=== PATIENT | female | born 1990 | race Caucasian/White ===

== ENCOUNTER → 2017-10-18 | Outpatient (CLI) | payer BC, OTHER ==
[2015-03-07 11:14] VITALS: BMI 38.1
[~2017-10-18] MED LIST: ARMTHY90PT PO; CALC-521 PO; CETI10CA8 PO; FAMO40TA8 PO; HYDR-4225 PO; IBUP800T37 PO; MONT10TA PO; OXYC-865 PO; TRAZ-156 PO
== END ==
LOC: LAB 10:02
PROVIDERS: ATTEND Obstetrics & Gynecology
DX: E03.9 Hypothyroidism, unspecified (principal); Z33.1 Pregnant state, incidental
CPT/HCPCS: 36415; 84439; 84443; 84481

== ENCOUNTER → 2017-10-28 | Outpatient (CLI) | payer BC, OTHER ==
[2015-03-07 11:14] VITALS: BMI 38.1
== END ==
LOC: LAB 09:01
PROVIDERS: ATTEND Obstetrics & Gynecology
DX: O20.9 Hemorrhage in early pregnancy, unspecified (principal)
CPT/HCPCS: 36415; 84702

== ENCOUNTER → 2018-01-06 | Outpatient (CLI) | payer BC, OTHER ==
[2015-03-07 11:14] VITALS: BMI 38.1
[~2018-01-06] MED LIST changes: +PREN-127 PO; +SCOP1PAT16 TP
[2018-01-06 10:06] LABS: PLATELET COUNT, AUTOMATED 279 K/uL (150-450)
== END ==
LOC: LAB 09:21
PROVIDERS: ATTEND Obstetrics & Gynecology
DX: Z34.91 Encounter for supervision of normal pregnancy, unspecified, first trimester (principal); E06.3 Autoimmune thyroiditis; R82.79 Other abnormal findings on microbiological examination of urine
CPT/HCPCS: 36415; 81001; 84443; 85025; 86592; 86762; 86787; 86850; 86900; 86901; 87088; 87340

== ENCOUNTER → 2018-01-24 | Outpatient (CLI) | payer BC, OTHER ==
[2015-03-07 11:14] VITALS: BMI 38.1
== END ==
LOC: LAB 10:06
PROVIDERS: ATTEND Obstetrics & Gynecology
DX: Z34.81 Encounter for supervision of other normal pregnancy, first trimester (principal)
CPT/HCPCS: 87491; 87591

== ENCOUNTER → 2018-02-10 | Outpatient (CLI) | payer BC, OTHER ==
[2015-03-07 11:14] VITALS: BMI 38.1
[~2018-02-10] MED LIST changes: +FLUT16SP19 NS; -TRAZ-156 PO; +TRAZ50TA34 PO
== END ==
LOC: LAB 14:25
PROVIDERS: ATTEND Obstetrics & Gynecology
DX: O99.280 Endocrine, nutritional and metabolic diseases complicating pregnancy, unspecified trimester (principal)
CPT/HCPCS: 36415; 84443

== ENCOUNTER → 2018-04-10 | Outpatient (CLI) | payer BC, OTHER ==
[2015-03-07 11:14] VITALS: BMI 38.1
[~2018-04-10] MED LIST changes: +BUTA1TAB14 PO
== END ==
LOC: LAB 09:06
PROVIDERS: ATTEND Obstetrics & Gynecology
DX: O99.280 Endocrine, nutritional and metabolic diseases complicating pregnancy, unspecified trimester (principal)
CPT/HCPCS: 36415; 84443

== ENCOUNTER → 2018-04-21 | Outpatient (CLI) | payer BC, OTHER ==
[2015-03-07 11:14] VITALS: BMI 38.1
--- NOTE | 2018-04-21 11:19 | RADIOLOGY IMAGING REPORT ---
[place] [facility] [place] Terri Plata : 1990 MR: [id number] V: [id number] EXAM DATE: ORDERING PHYSICIAN: EMORY NAVAS TECHNOLOGIST: Location: [facility] Patient: Terri Plata : 1990 Visit/Account:[id number] Date of Sevice: 04/21/2018 [facility] OB ANATOMICAL SURVEY HISTORY: Routine ultrasound survey. ADDITIONAL HISTORY: None. COMPARISON: None. TECHNIQUE: Transabdominal imaging was performed for assessment of the fetus and maternal pelvic s tructures. Transvaginal imaging was performed. FINDINGS: Intrauterine gestations: One. presentation: Variable. heart rate: 130 bpm. Amniotic fluid volume: Normal; LULU 16.13 cm; MVP 4.89 cm. Placenta: Anterior and slightly low-lying, with the lower edge measuring 1.3 cm from the internal cer vical os.. Uterus: Gravid, otherwise unremarkable. Maternal adnexa/ovaries: Grossly unremarkable, ovaries not visualized.. Cervix: Long and closed. Transvaginal imaging demonstrated the cervical length measuring 4.11 cm, lo ng and closed.. Gestational Parameters: BPD: 4.63 cm; 20 weeks/ 0 days HC: 17.64 cm; 20 weeks/ 1 days AC: 15.23 cm; 20 weeks/ 4 days FL: 3.56 cm; 21 weeks/ 2 days Average ultrasound age (AUA): 20 weeks/ 4 days Estimated age based on LMP: 20 weeks/ 1 days Anatomic Survey: Intracranial structures, 4-chamber heart, stomach, kidneys, urinary bladder, spine, 3-vessel cord and cord insertion are unremarkable. Two upper and two lower extremities visualized. Upper lip and horacio te are intact. IMPRESSION: 1. Normal survey. 2. Slightly low-lying anterior placenta, with lower edge measuring 1.3 cm from the internal cervical os. 3. Ultrasound age 20 weeks/4 days consistent with gestational age based on LMP. Gestational age by LMP is 20 weeks/ 1 days with estimated date of delivery 09/07/2018. 4. Recommend follow-up ultrasound in the third trimester to confirm the position of the placenta wit h respect to the internal cervical os. . Report Dictated By: Kenrick Martinez at 04/21/2018 11:08 AM Report E-Signed By: Kenrick Martinez at 04/21/2018 11:15 AM WSN:[email or web address]
== END ==
LOC: RAD 09:20
PROVIDERS: ATTEND Obstetrics & Gynecology
DX: Z02.9 Encounter for administrative examinations, unspecified (principal)

== ENCOUNTER → 2018-06-05 | Outpatient (CLI) | payer BC, OTHER ==
[2015-03-07 11:14] VITALS: BMI 38.1
[~2018-06-05] MED LIST changes: +ALBU8.5H IH; +DIPH0.5D12 IM; +FLU60VIA41 IM
[2018-06-05 16:08] LABS: PLATELET COUNT, AUTOMATED 270 K/uL (150-450)
== END ==
LOC: LAB 08:07
PROVIDERS: ATTEND Obstetrics & Gynecology
DX: Z34.92 Encounter for supervision of normal pregnancy, unspecified, second trimester (principal)
CPT/HCPCS: 36415; 82950; 84443; 85025

== ENCOUNTER → 2018-07-24 | Outpatient (CLI) | payer BC, OTHER ==
[2015-03-07 11:14] VITALS: BMI 38.1
--- NOTE | 2018-07-24 14:43 | RADIOLOGY IMAGING REPORT ---
FACILITY: [facility] PATIENT NAME: Terri Plata : 1990 MR: [id number] V: [id number] EXAM DATE: ORDERING PHYSICIAN: EMORY NAVAS TECHNOLOGIST: [place] [facility] [place]: Terri Plata : 1990 Visit/Account:[id number] Date of Sevice: 07/24/2018 Exam type: [facility] OB LIMITED History: LULU, heart rate Comparison: April 21, 2018. Findings: Limited OB evaluation was performed for LULU and heart rate. Her graft A single fetus in breec h presentation was demonstrated. The heart rate was 138 bpm. LULU was 20.54 cm, largest amniotic fluid pocket was 7.48 cm The gestational age by last menstrual. Was 33 weeks and four days IMPRESSION: 1. Limited OB evaluation for heart rate and LULU demonstrated heart rate of 138 bpm. LULU was 20.54 cm with the largest pocket measuring 7.48 cm Report Dictated By: Vilma Addison MD at 07/24/2018 2:36 PM Report E-Signed By: Vilma Addison MD at 07/24/2018 2:39 PM WSN:[email or web address]
== END ==
LOC: RAD 09:01
PROVIDERS: ATTEND Obstetrics & Gynecology
DX: O26.843 Uterine size-date discrepancy, third trimester (principal); O09.93 Supervision of high risk pregnancy, unspecified, third trimester

== ENCOUNTER → 2018-07-26 | Outpatient (CLI) | payer BC, OTHER ==
[~2018-07-26] VITALS: Ht 160 cm; Wt 95.3 kg
[~2018-07-26] MED LIST changes: +AMPICILLIN 2 GM VIAL 2 GM in NS(*) 0.9% 100 ML ADDVANT BAG 100 ML IVPB ONE; +LR(*) 1000 ML BAG 1,000 ML ONE; +MAGNESIUM SUL* 4 GM/100 ML BAG 100 ML IVPB ONE; +MAGNESIUM SULF 20 GM/500 ML IV 500 ML IV SCH; +NORMOSOL R SOLN(*) 1000 ML BAG 1,000 ML IV ONE
[2018-07-26 21:20] VITALS: BP_SYST 118; BP_DIAS 65; BP_DIAS 68; Ht 160 cm; Wt 95.3 kg
--- NOTE | 2018-07-26 22:39 | RADIOLOGY IMAGING REPORT ---
FACILITY: [facility] PATIENT NAME: Terri Plata : 1990 MR: [id number] V: [id number] EXAM DATE: ORDERING PHYSICIAN: MONY QUINONEZ TECHNOLOGIST: Location: [facility] Patient: Terri Plata : 1990 Visit/Account:[id number] Date of Sevice: 07/26/2018 OB LIMITED HISTORY: Heavy bleeding. No heart tones. 33 week 6 day gestation. COMPARISON STUDIES: 07/24/2018. FINDINGS: Examination was performed in the left lateral decubitus position Intrauterine gestations: One. presentation: Cephalic. heart rate: Regular at 139 bpm. Amniotic fluid index: 9.1 cm. Largest amniotic fluid pocket 4.7 cm. Placenta: Anterior without previa. Placental cord insertion is normal. Uterus: Gravid, otherwise normal. Maternal adnexa: Unremarkable. Cervix: Not visualized due to shadowing from the head. IMPRESSION: 1. Single live intrauterine gestation in cephalic presentation. 2. Regular cardiac activity at 139 bpm. 3. Amniotic fluid index is 9.1, previously 20.5. The deepest pocket is 4.7 cm. 4. Placenta is anterior without previa. These findings were discussed by phone with MONY QUINONEZ on 07/26/2018 10:35 PM. Report Dictated By: Fariha Jacob at 07/26/2018 10:23 PM Report E-Signed By: Fariha Jacob at 07/26/2018 10:35 PM WSN:[id number]
[2018-07-26 23:07] LABS: PLATELET COUNT, AUTOMATED 263 K/uL (150-450)
[2018-07-26 23:33] LABS: INR 0.97
--- NOTE | 2018-07-26 23:41 | History & Physical ---
History of Present Illness Age of Patient: 28 : 3 Para or TPAL: 1 EDC per LMP: Sep 07, 2018 Estimated Gestational Age: 33.6 Chief Complaint Vaginal bleeding. History of Present Illness Pt is a 28 y/o @ 33-6/7 weeks gestation by Lmp consistent with an early ultrasound with a final GRAY of 09/07/18. Pt presents to L&D with a chief com plaint of vaginal bleeding. Pt reports a large gush of blood/fluid around 2049 tonight. Reports that it was a lot and appeared to have lots of blood. Pt reports that she has had multiple episodes of this since 2049. Pt reports that while on her way to [place] to visit family she had similar episodes that weren't as bad. She did receive Betamethasone 07/13/and 07/14. Pt did see MFM at [facility]. Pt reports that she has been having irregular contractions since having the large gush of fluid. Painful contractions every 10 minutes but does feel tightening more frequent then that. History Patient's Blood Type: O Positive Rubella Status: Immune Group B Strep Screen: Positive Obstetrical History: Episode of Vaginal Bleeding 07/13 and 07/14 in [place], [place]. Pt received Betamethasone 12 mg on 07/13 and 07/14. History of Delivery. Desires repeat. Past Medical History: Hashimotos Thyroiditis TSH of 1.33 on 06/05/18. Chronic idiopathic Urticaria GBS positive. Allergies: Coded Allergies: NSAIDS (Non-Steroidal Anti-Inflamma (Verified Allergy, Severe, hives, angioedema, 02/10/18) levonorgestrel (Verified Allergy, Unknown, 02/10/18) metoclopramide (Verified Allergy, Unknown, 02/10/18) Social History: No T/E/D. . Family History: FH: colon cancer MGF FH: diabetes mellitus PGM Med Rec Home Meds Active Scripts Albuterol Sulfate 90 Mcg/Act (PROAIR HFA 90 MCG/ACT) 8.5 Gm Hfa.aer.ad, 2 PUFF IH Q6H PRN for wheezing, #1 INHALER 3 Refills Prov:EMORY NAVAS MD 05/08/18 Fluticasone Prop 50 Mcg Ns (FLONASE 50 MCG NS) 16 Gm [place].susp, 2 SPRAYS NS QDAY, #1 BOT 6 Refills Prov:EMORY NAVAS MD 05/08/18 Butalb/Acetaminophen/Caff 50-325-40 Mg (FIORICET 50-325-40) 1 Each Tablet, 1-2 TAB PO Q4H PRN for headache, #30 TAB 2 Refills Prov:EMORY NAVAS MD 04/10/18 Reported Medications Vits W-Ca,Fe,Fa(<1MG) ( VITAMINS) 1 Each Tablet, 1 EACH PO DAILY, TAB 01/06/18 Calcium Carbonate (TUMS) 300 Mg Tab.chew, 600 MG PO, TAB.CHEW 03/04/15 Thyroid (ARMOUR THYROID) 90 Mg Tab, 120 MG PO, TAB 10/15/13 Review of Systems All Systems Reviewed/Normal: Yes, Except as Noted Constitutional: No Fever, No Weight Loss, No Weight Gain, No Chills, No Night Sweats, No Other Neurological: No Syncope, No Confusion, No Weakness, No Dizziness, No Slurred Speech, No Other Eyes: No Vision Change, No Loss of Vision, No Photophobia, No Other ENT: No Hearing Loss, No Sinus Congestion, No Sore Throat, No Ear Ache, No Tinnitus, No Other Cardiovascular: No Chest Pain, No Palpitations, No Orthostatic Hypotension, No Other Respiratory: No Shortness of Breath, No Cough, No Wheezing, No Other Gastrointestinal: No Nausea, No Vomiting, No Diarrhea, No Dysphagia, No Constipation, No Early Satiety, No Hematemesis, No Hematochezia, No Melena, No Abdominal Pain, No Other Genitourinary: No Dysuria, No Hematuria, No Urinary Incontinence, No Other Musculoskeletal: No Pain, No Sprain, No Strain, No Impaired Mobility, No Other Psychiatric: No Depression, No Anxiety, No Other Exam General Exam General Apperance: Alert/Awake/No Acute Distress Neuro: No Gross deficits Eyes: Normal Extraocular Movement & Vison ENT: Normal Cardiovascular: Regular Rate and Rhythm Respiratory: No Respiratory Distress Abdomen: Soft, Non-Tender, Non-Distended, Gravid - Non-Tender : Normal Musculoskeletal: No Weakness/Pain Extremities: No Cyanosis,Clubbing or Edema Integumentary: Skin Intact without Lesions or Rash Psychological: Alert & Oriented X3 Vaginal Discharge/Fluid?: Bloody Fluid Cervical Dialation: 1 Cervical Effacement (%): 70 Cervical Consistency: Soft Cervical Position: Anterior Station: -2 Medical Decision Making Imaging Ultrasound/Imaging PATIENT NAME: Terri Plata : 1990 MR: [id number] V: [id number] EXAM DATE: ORDERING PHYSICIAN: MONY QUINONEZ TECHNOLOGIST: Location: [facility] Patient: Terri Plata : 1990 Visit/Account:[id number] Date of Sevice: 07/26/2018 OB LIMITED HISTORY: Heavy bleeding. No heart tones. 33 week 6 day gestation. COMPARISON STUDIES: 07/24/2018. FINDINGS: Examination was performed in the left lateral decubitus position Intrauterine gestations: One. presentation: Cephalic. heart rate: Regular at 139 bpm. Amniotic fluid index: 9.1 cm. Largest amniotic fluid pocket 4.7 cm. Placenta: Anterior without previa. Placental cord insertion is normal. Uterus: Gravid, otherwise normal. Maternal adnexa: Unremarkable. Cervix: Not visualized due to shadowing from the head. IMPRESSION: 1. Single live intrauterine gestation in cephalic presentation. 2. Regular cardiac activity at 139 bpm. 3. Amniotic fluid index is 9.1, previously 20.5. The deepest pocket is 4.7 cm. 4. Placenta is anterior without previa. These findings were discussed by phone with MONY QUINONEZ on 07/26/2018 10:35 PM. Report Dictated By: Fariha Jacob at 07/26/2018 10:23 PM Pre-Admit Course Medical Record Review: Yes VTE Prophylasis: Adult Deep Vein Thrombosis/Pulmonary: No Assessment and Plan SITE MANAGER Assessment: Stable SITE MANAGER Plan: Routine Labor Care Problems: (1) History of delivery affecting (2) 33 weeks gestation of (3) premature rupture of membranes Status: Acute Assessment & Plan: Pt is 33 wga. Did discuss pt care with Dr. Gould at [facility] who has agreed to accept the patient. Pt continues to leak fluid. Bleeding is minimal at this point. Pt is GBS. Will start on Ampicillin 2 gms. Will also start patient on Magnesium sulfate to tocolysis. Pt H/H stable at 11.0/32.3. Pt received betamethasone on 07/13 and 07/14 in [place]. Will plan for transfer to [facility]. Continue to monitor pt's bleeding. If it worsens and no longer stable will need to deliver and then transfer the . MONY QUINONEZ DO Jul 26, 2018 23:41
== END ==
LOC: L&D 07-26 21:06 → UNDOADMIN 21:06 → OB 21:06 → L&D 21:06 → UNDODISIN 07-27 02:05 → EDSTATUS 07-28 07:15
PROVIDERS: ATTEND Student in an Organized Health Care Education/Training Program
DX: O36.8130 Decreased fetal movements, third trimester, not applicable or unspecified (principal); Z3A.33 33 weeks gestation of pregnancy
CPT/HCPCS: 76815; 84112; 85025; 85049; 85379; 85384; 85610; 85730; J0290; J3475; J7050; 59025; 82040; 82247; 82310; 82374; 82435; 82565; 82947; 84075; 84132; 84155; 84295; 84450; 84460; 84520

== ENCOUNTER → 2018-07-27 | Outpatient (REF) ==
[2018-07-26 21:20] VITALS: BMI 37.2
[~2018-07-27] MED LIST changes: -AMPICILLIN 2 GM VIAL 2 GM in NS(*) 0.9% 100 ML ADDVANT BAG 100 ML IVPB ONE; -LR(*) 1000 ML BAG 1,000 ML ONE; -MAGNESIUM SUL* 4 GM/100 ML BAG 100 ML IVPB ONE; -MAGNESIUM SULF 20 GM/500 ML IV 500 ML IV SCH; -NORMOSOL R SOLN(*) 1000 ML BAG 1,000 ML IV ONE
== END ==
LOC: AMB 01:08
PROVIDERS: ATTEND Nurse Practitioner
DX: Z02.9 Encounter for administrative examinations, unspecified (principal)

== ENCOUNTER → 2018-09-19 | Outpatient (CLI) | payer BC, OTHER ==
[2018-07-26 21:20] VITALS: BMI 37.2
[~2018-09-19] MED LIST changes: +METH0.2T6 PO
--- NOTE | 2018-09-19 19:49 | RADIOLOGY IMAGING REPORT ---
FACILITY: [facility] PATIENT NAME: Terri Plata : 1990 MR: [id number] V: [id number] EXAM DATE: ORDERING PHYSICIAN: EMORY NAVAS TECHNOLOGIST: Location: [facility] [place] Patient: Terri Plata : 1990 Visit/Account:[id number] Date of Sevice: 09/19/2018 Pelvic ultrasound INDICATION: bleeding COMPARISON: OB ultrasound from July 26, 2018 FINDINGS: Uterus measures 8.3 x 4.4 x 5.8. Mild myometrial heterogeneity. Hypoechoic region correlating to the operation. Mild hypervascularity without focal lesion. The endometrium measures 5 mm and is within normal limits. Trace amount of simple appearing free fluid. Urinary bladder is empty. Pelvic vessels appear unremarkable on this examination. Bilateral ovaries are unremarkable with multiple small peripheral follicles and normal internal vascu larity. IMPRESSION: 1. Expected appearance of the uterus status post section. The uterus is mildly hy pervascular without focal abnormality. 2. The endometrium measures 5 mm and appears normal. 3. Trace amount of simple appearing free fluid Report Dictated By: Naresh Aguiar MD at 09/19/2018 7:39 PM Report E-Signed By: Naresh Aguiar MD at 09/19/2018 7:45 PM WSN:[id number]
== END ==
LOC: US 15:41
PROVIDERS: ATTEND Obstetrics & Gynecology
DX: O72.1 Other immediate postpartum hemorrhage (principal)
CPT/HCPCS: 76830